=== PATIENT | female | born 1990 | race Caucasian/White ===

== ENCOUNTER → 2024-10-05 | Outpatient (CLI) | payer BC ==
--- NOTE | 2024-10-05 15:07 | XR ---
EXAMINATION TYPE: XR chest 2V DATE OF EXAM: 10/05/2024 3:01 PM COMPARISON: None TECHNIQUE: XR chest 2V Frontal and lateral views of the chest. CLINICAL INDICATION:Female, 34 years old with history of J06.9; FINDINGS: Lungs/Pleura: There is no evidence of pleural effusion or pneumothorax. Left lower lobe patchy opacit y. Pulmonary vascularity: Unremarkable. Heart/mediastinum: Cardiomediastinal silhouette is unremarkable. Musculoskeletal: No acute osseous pathology. IMPRESSION: Left lower lobe patchy opacity concerning for pneumonia. [facility] Sameera Hayes, , 10/05/2024 3:05 PM
== END | disposition home or self-care (01) ==
LOC: RADXRMAIN 14:43
PROVIDERS: ATTEND Nurse Practitioner Family
DX: J06.9 Acute upper respiratory infection, unspecified (principal); R91.8 Other nonspecific abnormal finding of lung field
CPT/HCPCS: 71046